=== PATIENT | female | born 1945 | race Caucasian/White ===

== ENCOUNTER 2019-07-21 14:43 | Emergency (ER) | payer MEDICARE, BC ==
[~2019-07-21] VITALS: Ht 165.1 cm; Wt 51.0 kg
[2019-07-21 14:51] VITALS: BP 122/72
--- NOTE | 2019-07-21 15:13 | NUR ---
PT FELL GARDENING TO RIGHT ARM. PT GOT AN IMAGE AT URGENT SHOWING FRACTURED HUMERUS. CMS INTACT. PT NOT ON DISTRESS
[2019-07-21] MEDS ORDERED: HYDROcodone/APAP 5/325 TABLET PO ONE (16:00)
[2019-07-21] MEDS ORDERED: HYDROcodone/APAP 5/325 TABLET ONE (16:02)
--- NOTE | 2019-07-21 16:41 | NUR ---
Carlin andrade in ED - 07/21/19 at 1642 by KASSY MEDICATED PER BS 96. VSS
--- NOTE | 2019-07-21 16:50 | NUR ---
SHOULDER IMMOBILIZER APPPLIED.
--- NOTE | 2019-07-21 17:56 | NUR ---
Patient/Caregiver given discharge instructions and they have confirmed that they understand the instructions. Patient ambulatory with steady gait.
== END 2019-07-21 17:58 | disposition home or self-care (01) ==
LOC: ED 17:05
DX: S42.291A Other displaced fracture of upper end of right humerus, initial encounter for closed fracture (principal); W01.0XXA Fall on same level from slipping, tripping and stumbling without subsequent striking against object, initial encounter; Y93.89 Activity, other specified; Y92.009 Unspecified place in unspecified non-institutional (private) residence as the place of occurrence of the external cause; Y99.8 Other external cause status
CPT/HCPCS: 29105; 99283